=== PATIENT | female | born 1940 | race Caucasian/White ===

== ENCOUNTER 2019-04-01 05:58 | Inpatient (IN) | payer OTHER ==
[~2019-04-01] VITALS: Ht 157.5 cm; Wt 93.0 kg
[2019-04-01] VITALS (8 sets, daily range): BP systolic 139–196; BP diastolic 79–110
[~2019-04-01 05:58] MED LIST: ASPIRIN325 PO; NEXIUM40 MG PO; NORVASC10 MG PO
[2019-04-01 06:22] LABS: ABSOLUTE BASOPHILS 0.1 thou/uL (0.0-0.2); ABSOLUTE LYMPHOCYTES 1.9 thou/uL (0.8-5.3); ABSOLUTE MONOCYTES 0.4 thou/uL (0.0-1.2); ABSOLUTE NEUTROPHILS 11.2 thou/uL (1.6-8.1); BASOPHILS 0.4 %; EOSINOPHILS 0.1 %; HEMATOCRIT 46.3 % (37.0-47.0); HEMOGLOBIN 15.4 gm/dL (12.0-15.0); LYMPHOCYTES 14.1 %; MCH 29.4 pg (26.0-34.0); MCHC 33.3 g/dL (28.0-37.0); MCV 88.4 fL (80.0-100.0); MONOCYTES 2.9 %; MPV 6.8 fl. (7.2-11.1); NUCLEATED RBCS 0 /100WBC; PLATELET COUNT* 229 thou/uL (150-400); POLYS 82.5 %; RBC 5.24 mil/uL (4.20-5.00); WBC 13.6 thou/uL (4.0-11.0)
[2019-04-01 06:32] LABS: CALCIUM 9.3 mg/dL (8.5-10.1); CREATININE 0.7 mg/dL (0.6-1.3); POTASSIUM 3.9 mmol/L (3.5-5.1)
[2019-04-01 06:42] LABS: ALBUMIN 4.2 g/dL (3.4-5.0); TOTAL BILIRUBIN 0.8 mg/dL (<0.1-1.0); TOTAL PROTEIN 8.1 g/dL (6.4-8.2)
[2019-04-01 06:46] LABS: PROTIME 10.1 Seconds (9.20-11.50)
[2019-04-01 08:16] LABS: URINE BILIRUBIN NEGATIVE (Negative); URINE BLOOD TRACE (Negative); URINE CLARITY CLEAR; URINE COLOR YELLOW; URINE GLUCOSE-RANDOM NEGATIVE (Negative); URINE KETONES NEGATIVE (Negative); URINE LEUKOCYTES-REFLEX NEGATIVE (Negative); URINE PROTEIN NEGATIVE (Negative); URINE SPECIFIC GRAVITY <= 1.005 (1.005-1.030); URINE UROBILINOGEN 0.2 E.U./dl (0.2-1.0)
[2019-04-01 08:20] LABS: URINE NITRITE-REFLEX POSITIVE (Negative)
[2019-04-01 08:28] LABS: SQUAMOUS >10 Many /LPF (0-3)
[2019-04-01 08:29] LABS: URINE RBC 0-2 Rare /HPF (0-2); URINE WBC-REFLEX 0-5 Rare /HPF (0-5)
[2019-04-01 08:30] LABS: BACTERIA-REFLEX >30 Many /HPF (None Seen); CASTS None Seen /LPF (None Seen); CRYSTALS None Seen /LPF (None Seen); MUCUS None Seen strn/LPF (None Seen)
--- NOTE | 2019-04-01 18:15 | NUR ---
WENT TO PATIENT ROOM FOR ROLLER PRINT TENDER. PATIENT STATES "MY HEART FEELS LIKE IT'S GOING FAST AGAIN." TELEMETRY SHOWS ST 142. CONTACTED PHYSICIAN, OBTAINED STAT CARDIAC CONSULT FROM DR. VILLARREAL, STAT EKG, VS. EKG RESULTS SVT. PATIENT INSTRUCTED IN VALSAVA MANEUVER. RECEIVED ORDERS FROM DR. GARCIA. PATIENT HEART RATE RETURNED TO 90'S WITH VALSAVA MANEUVER. EKG OBTAINED TO REFLECT CURRENT RHYTHM. FAXED EKG AND STRIP TO DR. GARCIA.
--- NOTE | 2019-04-01 19:30 | NUR ---
RECEIVED REPORT AND ASSUMED CARE OF PT. PT RESTING WITH EYES CLOSED BUT ARROUSABLE. STATES NAUSEA STILL THERE BUT IMPROVING. TELEMETRY ON SHOWING SR AT THIS TIME. SON AT BEDSIDE. WILL CONT TO MONITOR AND ASSIST NEEDED.
[2019-04-02] VITALS: BP 105/62
[2019-04-02 04:00] VITALS: BP 97/53
[2019-04-02 04:35] LABS: ABSOLUTE LYMPHOCYTES 3.6 thou/uL (0.8-5.3); ABSOLUTE MONOCYTES 0.8 thou/uL (0.0-1.2); ABSOLUTE NEUTROPHILS 5.7 thou/uL (1.6-8.1); BASOPHILS 0.3 %; EOSINOPHILS 0.4 %; HEMATOCRIT 43.5 % (37.0-47.0); HEMOGLOBIN 14.5 gm/dL (12.0-15.0); LYMPHOCYTES 35.4 %; MCH 29.6 pg (26.0-34.0); MCHC 33.5 g/dL (28.0-37.0); MCV 88.4 fL (80.0-100.0); MONOCYTES 7.9 %; MPV 6.6 fl. (7.2-11.1); NUCLEATED RBCS 0 /100WBC; PLATELET COUNT* 204 thou/uL (150-400); RBC 4.91 mil/uL (4.20-5.00); RDW-CV 15.1 % (10.5-14.5); WBC 10.1 thou/uL (4.0-11.0)
[2019-04-02 04:54] LABS: ANION GAP 10 mmol/L (7-16); BUN 8 mg/dL (7-18); CALCIUM 8.9 mg/dL (8.5-10.1); CHLORIDE 103 mmol/L (98-107); CO2 25 mmol/L (21-32); CREATININE 0.6 mg/dL (0.6-1.3); GLUCOSE 112 mg/dL (70-99); POTASSIUM 3.6 mmol/L (3.5-5.1); SODIUM 138 mmol/L (136-145); TROPONIN-I LEVEL <0.06 ng/mL (<0.06)
--- NOTE | 2019-04-02 05:39 | NUR ---
SLEPT WELL TONIGHT. NPO SINCE [place] FOR CARDIAC TEST THIS AM. DENIES CP TONIGHT. TELEMETRY CONT TO SHOW SR. GAIT STEADY TO AND FROM BR INDEPENDENTLY. HS GOALS OF REST AND SAFETY ACHIEVED. HOURLY ROUNDING OBSERVED.
[2019-04-02 08:32] VITALS: BP 114/77
--- NOTE | 2019-04-02 10:31 | NUR ---
Pt is A&O. Resides at home with her dtr. Active and independent. No DME. No hx of HH or SNF. Goal is home at dc, no needs anticipated.
--- NOTE | 2019-04-02 11:08 | EKG ---
[place] [address] ELECTROCARDIOGRAM REPORT Name: PO WASHBURN Room: [address] ADM IN [facility].#: [id number] Admission: 04/01/19 Attend Phys: Raheem Dougherty MD Discharge: Date of : 36 Report #: [id number] THIS REPORT FOR: //name// [facility] ED Test Date: 2019-04-01 Test Time: 06:04:49 Pat Name: PO WASHBURN Department: Room: [facility] Gender: F Demand Planner: [place] : 1940 Requested By: Gillian Anthony Order Number: [id number] MD: Mane Darden Measurements Intervals [place] Rate: 88 P: -36 VA: 110 QRS: -16 QRSD: 94 T: -56 QT: 354 QTc: 429 Interpretive Statements Sinus rhythm Borderline short VA interval Borderline left axis deviation Abnormal R-wave progression, late transition Nonspecific repol abnormality, diffuse leads Compared to ECG 10/28/2012 19:50:20 no change Electronically Signed On 04-02-2019 11:08:41 CDT by Mane Darden [email or web address] <ELECTRONICALLY SIGNED> By: Mane Darden MD, FAC 04/02/19 1108 [id number] [id number] Mane Darden MD, [facility] /EPI
--- NOTE | 2019-04-02 11:14 | EKG ---
[place] [address] ELECTROCARDIOGRAM REPORT Name: PO WASHBURN Room: [address] ADM IN .R.#: [id number] Admission: 04/01/19 Attend Phys: Raheem Dougherty MD Discharge: Date of : 36 Report #: [id number] THIS REPORT FOR: //name// [facility] Test Date: 2019-04-01 Test Time: 18:25:36 Pat Name: PO WASHBURN Department: Room: [address] Gender: F Architectural Sales Consultant: : 1940 Requested By: Matteo Hart Order Number: [id number] Judy MD: Mane Darden Measurements Intervals [place] Rate: 142 P: SD: QRS: -24 QRSD: 92 T: -50 QT: 320 QTc: 492 Interpretive Statements Supraventricular tachycardia Borderline left axis deviation Repolarization abnormality, prob rate related Compared to ECG 10/28/2012 19:50:20 Sinus rhythm no longer present Electronically Signed On 04-02-2019 11:14:13 CDT by Mane Darden [email or web address] <ELECTRONICALLY SIGNED> By: Mane Darden MD, FACC 04/02/19 1114 1825 1825 Mane Darden MD, FAC /EPI
--- NOTE | 2019-04-02 11:15 | EKG ---
[place] [address] ELECTROCARDIOGRAM REPORT Name: PO WASHBURN Room: [address] IN ..#: [id number] Admission: 04/01/19 Attend Phys: Raheem Dougherty MD Discharge: Date of : 36 Report #: [id number] THIS REPORT FOR: //name// [facility] Test Date: 2019-04-01 Test Time: 18:47:47 Pat Name: PO WASHBURN Department: Room: [address] Gender: F Tip Inserter: CHANDRAKANT : 1940 Requested By: Raheem Dougherty Order Number: [id number] Judy SHEEHAN: Mane Darden Measurements Intervals [place] Rate: 93 P: -15 TN: 125 QRS: -11 QRSD: 92 T: -28 QT: 369 QTc: 459 Interpretive Statements Pediatric ECG interpretation Sinus rhythm Nonspecific intraventricular conduction delay Compared to ECG 10/28/2012 19:50:20 rate slowed Electronically Signed On 04-02-2019 11:15:11 CDT by Mane Darden [email or web address] <ELECTRONICALLY SIGNED> By: Mane Darden MD, [facility] 04/02/19 1115 46 46 Mane Darden MD, FACC /EPI
[2019-04-02 11:30] VITALS: BP 102/54
[2019-04-02 16:00] VITALS: BP 115/70
--- NOTE | 2019-04-02 16:23 | 2DMMODE ---
[place] [address] 2 D/M-MODE ECHOCARDIOGRAM Name: PO WASHBURN Room: [address] IN [facility]#: [id number] Admission: 04/01/19 Attend Phys: Raheem Dougherty, Discharge: Date of : 36 Date of Service: 04/02/19 1623 Report #: [id number] THIS REPORT FOR: //name// APPROVED REPORT Study performed: 04/02/2019 10:31:56 EXAM: Comprehensive 2D, Doppler, and color-flow Echocardiogram Patient Location: In-Patient Room #: [facility] Status: routine BSA: 1.87 HR: 92 bpm BP: 97/53 mmHg Rhythm: NSR Other Information Study Quality: Good Indications Hypertension/HDD 2D Dimensions IVSd: 15.05 (7-11mm) LVOT Diam: 20.22 (18-24mm) LVDd: 44.16 mm PWd: 12.92 (7-11mm) Ascending Ao: 35.04 (22-36mm) LVDs: 26.08 (25-40mm) Aortic Root: 31.30 mm Volumes Left Atrial Volume (Systole) LA ESV Index: 35.30 mL/m2 Aortic Valve AoV Peak Juan.: 1.49 m/s AO Peak Gr.: 8.82 mmHg LVOT Max P.88 mmHg AO Mean Gr.: 4.66 mmHg LVOT Mean P.06 mmHg LVOT Max V: 1.10 m/s AO V2 VTI: 27.20 cm LVOT Mean V: 0.64 m/s [place] (VTI): 2.44 cm2 LVOT V1 VTI: 20.70 cm Mitral Valve E/A Ratio: 0.81 MV Decel. Time: 263.14 ms MV E Max Juan.: 0.68 m/[place] [address] 2 D/M-MODE ECHOCARDIOGRAM Name: PO WASHBURN Room: [address] IN [facility]#: [id number] Admission: 04/01/19 Attend Phys: Raheem Dougherty, Discharge: Date of : 36 Date of Service: 04/02/19 1623 Report #: [id number] MV PHT: 76.31 ms MVA (PHT): 2.88 cm2 TDI E/Lateral E': 8.50 E/Medial E': 13.60 Medial E' Juan.: 0.05 m/s Lateral E' Juan.: 0.08 m/s Pulmonary Valve PV Peak Juan.: 0.75 m/s PV Peak Gr.: 2.22 mmHg Tricuspid Valve RAP Estimate: 5.00 mmHg TR Peak Gr.: 24.87 mmHg RVSP: 29.00 mmHg PA Pressure: 29.00 mmHg Left Ventricle The left ventricle is normal size. There is normal LV segmental wall motion. Mild concentric left ventricular hypertrophy. Left ventricular systolic function is normal. The left ventricular ejection fraction is within the normal range. LVEF is 60-65%. Grade I - abnormal relaxation pattern. Right Ventricle The right ventricle is normal size. The right ventricular systolic function is normal. Atria Left atrium is mildly dilated. The right atrium size is normal. Aortic Valve The Aortic valve is sclerotic. No aortic regurgitation is present. There is no aortic valvular stenosis. Mitral Valve The mitral valve is normal in structure. Trace mitral regurgitation. No evidence of mitral valve stenosis. Tricuspid Valve The tricuspid valve is normal in structure. Mild tricuspid regurgitation. estimated pa pressure 30 mm Hg Pulmonic Valve Pulmonic valve is not well visualized. [place] [address] 2 D/M-MODE ECHOCARDIOGRAM Name: PO WASHBURN Lonny Room: [address] IN [facility]#: [id number] Admission: 04/01/19 Attend Phys: Raheem Dougherty, Discharge: Date of : 36 Date of Service: 04/02/19 1623 Report #: [id number] Great Vessels The aortic root is normal in size. IVC is normal in size and collapses >50% with inspiration. Pericardium There is no pericardial effusion. <Conclusion> Mild concentric left ventricular hypertrophy. LVEF is 60-65%. Left atrium is mildly dilated. The Aortic valve is sclerotic. <ELECTRONICALLY SIGNED> By: Mane Darden MD, FACC 04/02/19 1623 1623 162 Mane Darden MD, FACC /INF
[2019-04-02 20:00] VITALS: BP 119/62
[2019-04-03] VITALS: BP 97/47
[2019-04-03 04:00] VITALS: BP 105/60
--- NOTE | 2019-04-03 07:48 | NUR ---
RECIEVED REPORT AND ASSUMED CARE AT 1900. VSS. CARDIAC MONITORING IN PLACE. PT DENIES COMPLAINTS OF PAIN. ASSESSMENT COMPLETED CHARTED. PT UP AD THEODORE IN ROOM, ON RA. BED LOCKED IN LOWEST POSITION, CALL LIGHT WITHIN REACH. HOURLY ROUNDING COMPLETED AND ALL NEEDS MET.
[2019-04-03 08:00] VITALS: BP 138/64
--- NOTE | 2019-04-03 11:20 | NUR ---
No dc today, per cards, want to watch one more day with Sotalol
--- NOTE | 2019-04-03 13:34 | NUR ---
PT A/O. TELE TRACKING SR/SB AND ALL VSS ON ROOM AIR. DENIES CP, SOA. PT LOOKING FORWARD TO DC MARILIA. EDUCATED ON SAFETY AND PLAN OF CARE. PLEASE SEE ASSESSMENT FOR ADDITIONAL INFORMATION. WILL CONT TO MONITOR
--- NOTE | 2019-04-03 13:36 | EKG ---
[place] [address] ELECTROCARDIOGRAM REPORT Name: WASHBURNPO Lonny Room: [address] ADM IN M.R.#: [id number] Admission: 04/01/19 Attend Phys: Raheem Dougherty MD Discharge: Date of : 36 Report #: [id number] THIS REPORT FOR: //name// [facility] Test Date: 2019-04-03 Test Time: 08:52:11 Pat Name: PO WASHBURN Department: Room: [address] Gender: F Telephone Services Sales Representative: : 1940 Requested By: Mane Darden Order Number: [id number] Reading MD: Rinku Carbajal Measurements Intervals [place] Rate: 67 P: -22 WV: 149 QRS: -18 QRSD: 101 T: 30 QT: 425 QTc: 449 Interpretive Statements Sinus rhythm Inferior infarct, old Compared to ECG 04/01/2019 18:47:47 Myocardial infarct finding now present Intraventricular conduction delay no longer present Electronically Signed On 04-03-2019 13:36:42 CDT by Rinku Carbajal [email or web address] <ELECTRONICALLY SIGNED> By: Rinku Carbajal MD, FAC 04/03/19 1336 0852 0852 Rinku Carbajal MD, [facility] /EPI
--- NOTE | 2019-04-03 13:40 | CON ---
[address] [address] CONSULTATION Name: PO WASHBURN Room: [address] IN .R.#: [id number] Admission: 04/01/19 Attend Phys: Raheem Dougherty MD Discharge: Date of : 36 Report #: [id number] THIS REPORT FOR: //name// CC: Raheem Dougherty [facility] DATE OF SERVICE: 04/02/2019 CARDIOLOGY CONSULTATION HISTORY OF PRESENT ILLNESS: The patient is an 79-year-old single white female who I was asked to see in the hospital today after she was noted to be tachycardic. The history is obtained from the patient. There are no old records available. The patient has had no history of heart disease. She does have a long history of indigestion. Yesterday morning, she was at home when she felt nauseated. She denied any vomiting. She then felt her heart racing. She came to [place] by car and was admitted. After admission, she went into a narrow complex tachycardia. Cardiology consultation was requested. She denied any chest pain, arm pain. She denied any diarrhea or bleeding. She has had no recent fever or cough. She does note chronic dyspnea and edema. She has had no history of syncope or heart murmur. PAST MEDICAL HISTORY: Significant for previous surgery on her foot. She has had knee replacement, hypertension, hysterectomy. She has a history of hypertension. MEDICATIONS: At home includes Nexium, amlodipine. She takes an aspirin a day. ALLERGIES: She has no known drug allergies. FAMILY HISTORY: Father had a heart attack. SOCIAL HISTORY: She is , lives with her daughter in [place]. No smoking or alcohol abuse. Rarely drinks caffeine. REVIEW OF SYSTEMS: She has had no history of stroke, asthma, liver disease, kidney disease, cancer, psychiatric illness, chronic skin condition. She is 5 feet 2 inches, weight 200 pounds. PHYSICAL EXAMINATION: GENERAL: Revealed an elderly female, lying in bed. She appeared in no acute distress. VITAL SIGNS: She had a blood pressure of 170/90, her pulse is now 90. She is afebrile. HEENT: She was anicteric. Conjunctivae are pink. [place] [address] CONSULTATION Name: MADDISONPO Lonny Room: [address]#: [id number] Admission: 04/01/19 Attend Phys: Raheem Dougherty MD Discharge: Date of : 36 Report #: [id number] NECK: Veins do not appear distended. No carotid bruits heard. Neck is supple. CHEST: Clear to auscultation. CARDIOVASCULAR: Regular rate and rhythm, no murmur. ABDOMEN: Obese. EXTREMITIES: Had no pitting edema. Dorsalis pedis pulse 1+ bilaterally. SKIN: Cool and dry. NEUROLOGIC: Nonfocal. LYMPH: No adenopathy. MUSCULOSKELETAL: No joint effusion. Her workup in the Emergency Room when she arrived yesterday morning, she had a sinus rhythm. There are nonspecific ST and T-wave changes. On the monitor, the patient then had a narrow complex tachycardia at 140 beats per minute consistent with supraventricular tachycardia. Her workup so far, she had portable chest x-ray that showed normal heart size, clear lung baumann. She also had a CT scan of the abdomen because of her nausea and epigastric discomfort that showed no specific abnormality. There was evidence of diverticulosis, old compression fracture of L1. Her lab work, sodium 138, glucose 112. Liver function studies were normal. Troponins 0.06. Her white blood cell count was 10.1, hemoglobin 14.5. IMPRESSION AND RECOMMENDATIONS: 1. Paroxysmal supraventricular tachycardia. I would recommend starting sotalol. 2. Epigastric discomfort. Possible diverticular disease. CT scan of the abdomen showed no acute abnormality. 3. Hypertension. The patient is on a calcium joesph. 4. Obesity. <ELECTRONICALLY SIGNED> By: Mane Darden MD, FACC 04/03/19 1340 0817 [id number] Darden MD, FACC /nt
--- NOTE | 2019-04-03 13:46 | CARDNUC ---
[place] [address] CARDIAC NUCLEAR IMAGING REPORT Name: PO WASHBURN Room: [address] IN [facility]#: [id number] Admission: 04/01/19 Attend Phys: Raheem Dougherty, Discharge: Date of : 36 Date of Service: 04/03/19 1346 Report #: [id number] THIS REPORT FOR: //name// APPROVED REPORT Imaging Protocol: Stress Tc-99m/Rest Tc-99m 2 days Study performed: 04/01/2019 12:03:00 Indication: Chest pain Patient Location: In-Patient Room #: 213 Stress Tech: Marilu Linn Stress Nurse: Michelle Tejada RN NM Tech:CANDACE Guillory Ht: 5 ft 2 in Wt: 190 lbs BSA: 1.87 m2 BMI: 34.74 Medical History Medical History: hypertension Medications: amlodipine, asa-25, sotalol Allergies: nkda Cardiac Risk Factors: age hypertension Exercise History: Indeterminate Resting Data Rest SPECT myocardial perfusion imaging was performed in supine position 30 minutes following the intravenous injection of 31.8 mCi of Tc-99m Sestamibi. Time of rest injection: 1040 Date: 04/03/2019 The images were gated to evaluate regional wall motion and calculate left ventricular ejection fraction. Administration Route: IV Pharmacologic Stress Pharmacologic stress test was performed by injecting Regadenoson 0.4 mg IV push over 10-15 seconds immediately followed by the intravenous injection of 36.0 mCi of Tc-99m Sestamibi. Time of stress injection: 1335 Date: 04/02/2019 Administration Route: IV Gated Stress SPECT was performed 40 minutes after stress injection. The images were gated to evaluate regional wall motion and calculate left ventricular ejection fraction. Prone [place] [address] CARDIAC NUCLEAR IMAGING REPORT Name: PO WASHBURN Room: [address] IN [facility]#: [id number] Admission: 04/01/19 Attend Phys: Raheem Dougherty, Discharge: Date of : 36 Date of Service: 04/03/19 1346 Report #: [id number] Stress Test Details Stress Test: Pharmacologic stress testing performed using 0.4 mg of regadenoson per 5 mL given IV over 10 seconds. HR Max Heart Rate (APMHR): 139 bpm Resting HR: 65 bpm Target HR (85% APMHR): 118 bpm Max HR Achieved: 77 bpm % of APMHR: 55 Recovery HR: 65 bpm BP Resting BP: 116/72 mmHg Max BP: 91/40 mmHg Recovery BP: 123/79 mmHg ECG Resting ECG: Sinus Rhythm, nonspecific ST-T abnormalities Stress ECG: Sinus Rhythm, nonspecific ST-T abnormalities ST Change: None Arrhythmia: None Recovery ECG: Sinus Rhythm, nonspecific ST-T abnormalities Recovery ST Change: None Recovery Arrhythmia: None Clinical Reason for Termination: Completed protocol Exercise duration: 0 min sec Exercise capacity: 1 METs The patient tolerated Lexiscan infusion without significant cardiac symptoms. Nurse Comments pt too weak to walk on treadmill Stress ECG Conclusion The baseline 12-lead EKG shows sinus rhythm with nonspecific ST segment depression diffusely. EKGs obtained during and post Lexiscan infusion show sinus rhythm with no significant ST or T wave changes when compared to baseline. There were no stress-induced arrhythmias. Study Quality Study: Good Artifact: [place] [address] CARDIAC NUCLEAR IMAGING REPORT Name: PO WASHBURN Room: [address]#: [id number] Admission: 04/01/19 Attend Phys: Raheem Dougherty, Discharge: Date of : 36 Date of Service: 04/03/19 1346 Report #: [id number] Study Data At rest, the left ventricular ejection fraction was 66%.. Post stress, the left ventricular ejection was 67%.. TID = 0.94. Perfusion Myocardial perfusion images show uniform uptake of the radioisotope throughout the myocardium on both rest and stress images. Wall Motion Normal left ventricular wall motion. Nuclear Conclusion ECG Findings: non-diagnostic Clinical Findings: negative for ischemia Nuclear Findings: negative for ischemia Exercise Capacity: not assessed Left Ventricular Function: normal Risk Study: low Myocardial perfusion images show no defect to suggest infarct or ischemia. Left ventricular systolic function appears normal on gated studies. This is a low risk study. <Conclusion> The baseline 12-lead EKG shows sinus rhythm with nonspecific ST segment depression diffusely. EKGs obtained during and post Lexiscan infusion show sinus rhythm with no significant ST or T wave changes when compared to baseline. There were no stress-induced arrhythmias. <ELECTRONICALLY SIGNED> By: Rinku Carbajal MD, FACC 04/03/19 1346 1346 1346 Rinku Carbajal MD, FACC /INF
[2019-04-03 15:39] VITALS: BP 134/56
[2019-04-03 16:00] VITALS: BP 98/50
[2019-04-03 20:34] VITALS: BP 142/74
[2019-04-04] VITALS: BP 133/55
[2019-04-04 04:00] VITALS: BP 105/52
--- NOTE | 2019-04-04 05:44 | NUR ---
PT IS ABLE TO COMMUNICATE HER NEEDS TO STAFF EFFECTIVELY. SHE HAS DENIED THE NEED FOR PAIN MEDICATION UP TO THIS TIME. ON SOTALOL TRIAL. POSSIBLE DISCHARGE LATER TODAY, PENDING STRESS TEST RESULTS.
[2019-04-04 07:50] VITALS: BP 131/68
--- NOTE | 2019-04-04 10:39 | NUR ---
ASSUMED CARE OF PT AT 0730. PT SITTING IN CHAIR WAITING FOR BREAKFAST. A&0X4, COMPLAINS OF HEADACHE, TREATED WITH PRN TYLENOL WITH COMPLETE RELIEF. TRACING SR ON THE PROCESSING ANALYST. ON SOTALOL LOADING. ON RA SAT 96%. DENIES ANY SHORTNESS OF BREATH. PT UP AD THEODORE IN ROOM. PT GOAL FOR TODAY IS SOTALOL LOADING AND DISCHARGE PLANNING TO HOME. AM ASSESSMENT CHARTED. MEDICATIONS PER MAR. PT REPOSITIONS SELF. HOURLY ROUNDING OBSERVED. BED IN LOW POSITION. CALL LIGHT WITHIN REACH. WILL CONTINUE PLAN OF CARE.
--- NOTE | 2019-04-04 11:40 | EKG ---
[place] [address] ELECTROCARDIOGRAM REPORT Name: WASHBURNPO Lonny Room: [address] ADM IN ..#: [id number] Admission: 04/01/19 Attend Phys: Raheem Dougherty MD Discharge: Date of : 36 Report #: [id number] THIS REPORT FOR: //name// [facility] Test Date: 2019-04-04 Test Time: 08:08:37 Pat Name: PO WASHBURN Department: Room: [address] Gender: F Welfare Eligibility Worker: : 1940 Requested By: Mane Darden Order Number: [id number] Judy MD: Mane Darden Measurements Intervals [place] Rate: 61 P: 27 [place]: 179 QRS: -11 QRSD: 99 T: -6 QT: 437 QTc: 441 Interpretive Statements Sinus arrhythmia nonspecific st changes Borderline low voltage, extremity leads Compared to ECG 04/03/2019 08:52:11 no change Electronically Signed On 04-04-2019 11:40:36 CDT by Mane Darden [email or web address] <ELECTRONICALLY SIGNED> By: Mane Darden MD, [facility] 04/04/19 1140 0808 0808 Mane Darden MD, [facility] /EPI
[2019-04-04 11:46] VITALS: BP 118/64
[2019-04-04] MEDS ORDERED: SORINE 80 MG TA80 MG PO (14:02)
[2019-04-04] MEDS ORDERED: CEFDINIR300 MG PO (14:03)
[2019-04-04 14:05] VITALS: BP 118/64
--- NOTE | 2019-04-04 14:23 | NUR ---
DISCHARGE ORDERS RECEIVED. DISCHARGE INSTRUCTIONS, CARE NOTES, SCRIPTS AND FOLLOW UP APPTS GIVEN TO PT. PT COMMUNICATES UNDERSTANDING OF DISCHARGE TEACHING. IV AND REFUSE AND RECYCLING WORKER REMOVED. PT DISCHARGED WITH ALL BELONGINGS AND PAPERWORK VIA WHEELCHAIR WITH [employer] TO FAMILY OWN PERSONAL VEHICLE.
== END 2019-04-04 14:25 | disposition home or self-care (01) | DRG 690 ==
LOC: M.ERS 05:58 → M.TBA-ER 08:07 → M.2W 08:07
PROVIDERS: Emergency Medicine; ADMIT Internal Medicine
PROC: 3E0234Z Introduction of Serum, Toxoid and Vaccine into Muscle, Percutaneous Approach (ICD-10-PCS; principal; 2019-04-02)
DX: N39.0 Urinary tract infection, site not specified (principal); I47.1 Supraventricular tachycardia; R65.10 Systemic inflammatory response syndrome (SIRS) of non-infectious origin without acute organ dysfunction; I10 Essential (primary) hypertension; Z96.659 Presence of unspecified artificial knee joint; E66.9 Obesity, unspecified; I20.8 Other forms of angina pectoris; K21.9 Gastro-esophageal reflux disease without esophagitis; K57.90 Diverticulosis of intestine, part unspecified, without perforation or abscess without bleeding; Z90.710 Acquired absence of both cervix and uterus; Z79.82 Long term (current) use of aspirin; Z79.899 Other long term (current) drug therapy; Z82.49 Family history of ischemic heart disease and other diseases of the circulatory system; Z68.37 Body mass index [BMI] 37.0-37.9, adult; Z23 Encounter for immunization

== ENCOUNTER → 2020-12-16 | Outpatient (CLI) | payer MEDICARE ==
[~2020-12-16] MED LIST changes: +CEFDINIR300 MG PO; +SORINE 80 MG TA80 MG PO
[2020-12-16 12:35] LABS: CALCIUM 9.2 mg/dL (8.5-10.1); CREATININE 0.7 mg/dL (0.6-1.3); POTASSIUM 4.3 mmol/L (3.5-5.1)
== END ==
LOC: M.ULTRA 11:57
PROVIDERS: ATTEND Nurse Practitioner
DX: R06.02 Shortness of breath (principal); R60.9 Edema, unspecified

== ENCOUNTER → 2020-12-31 | Outpatient (CLI) | payer MEDICARE ==
[~2020-12-31] MED LIST changes: +ALEVE220 MG PO; +ASA81BEC PO; +CALCIUM 500-VI1 EAC3 PO; +CO Q-10100 M1 PO; +COZAAR 25 MG TA25 M2 PO; +FISH OIL 1,001000 M3 PO; +FUROSEMIDE 20 M20 MG PO; +KLOR-CON 1010 MEQ PO; +REQUIP 0.25 M0.25 M1 PO; +SUPER THERAVIT1 EACH PO; +VITAMIN B-121000 MC2 SUBLING; +ZINC50 MG PO
[2020-12-31 10:09] LABS: CALCIUM 8.5 mg/dL (8.5-10.1); CREATININE 0.7 mg/dL (0.6-1.3); POTASSIUM 4.2 mmol/L (3.5-5.1)
== END ==
LOC: M.LAB 09:23
PROVIDERS: ATTEND Nurse Practitioner
DX: R60.0 Localized edema (principal)